=== PATIENT | male | born 1970 ===

== ENCOUNTER → 2023-02-07 | Outpatient (CLI) | payer OTHER | END | disposition home or self-care (01) | LOC: LAB SHORT 11:53 → LAB 11:53 | DX: C44.519 Basal cell carcinoma of skin of other part of trunk (principal) | CPT/HCPCS: 88305 ==

== ENCOUNTER → 2023-02-16 | Outpatient (CLI) | payer OTHER | END | disposition home or self-care (01) | LOC: LAB SHORT 09:45 → PLD 09:45 → LAB 09:45 | DX: C44.519 Basal cell carcinoma of skin of other part of trunk (principal); L57.0 Actinic keratosis | CPT/HCPCS: 88305 ==

== ENCOUNTER → 2023-03-02 | Outpatient (CLI) | payer OTHER | END | disposition home or self-care (01) | LOC: PLD 08:04 → LAB SHORT 08:04 | DX: C44.519 Basal cell carcinoma of skin of other part of trunk (principal) | CPT/HCPCS: 88305 ==